=== PATIENT | female | born 1990 | race Caucasian/White ===

== ENCOUNTER 2022-05-18 14:48 | Outpatient (CLI) | payer OTHER, SELFPAY ==
--- NOTE | 2022-05-18 15:00 | CRLHL7_ITS ---
For Patients: As a result of the Cures Act, medical imaging exams and procedure reports are released immediately into your electronic medical record. You may view this report before your referring provider. If you have questions, please contact your health care provider. INDICATION: First trimester scan, establish dates. COMPARISON: None. TECHNIQUE: Real-time weber-scale imaging of the pelvis was performed. FINDINGS: Sonographic imaging demonstrates a single living intrauterine gestation. The embryo demonstrates a regular cardiac rate measuring 147 beats per minute. The embryo`s crown-rump length measurement of 0.9 cm corresponds to a gestational age of 7 weeks 0 days with a sonographic due date of 01/04/2023. There is a normal-appearing yolk sac. There are no gross abnormalities noted within the embryo at this early state of development. The gestational sac has a normal appearance. There is a 6 x 5 x 4 millimeter perigestational hemorrhage. The amount of fluid within the sac appears appropriate for gestational age. The cervix is closed. The myometrium appears normal. The ovaries are of normal size. Corpus luteal cyst left ovary. There are no suspicious fluid collections noted in the cul-de-sac. IMPRESSION: Single living intrauterine with sonographic gestational age 7 weeks 0 days and sonographic due date 01/04/2023. Small subchorionic hemorrhage measuring 6 x 5 x 4 millimeters. Dictated by Lavon Kay MD @ 05/18/2022 3:47:54 PM (Electronically Signed)
== END 2022-05-18 14:49 | disposition home or self-care (01) ==
LOC: US 14:48
PROVIDERS: Visit Provider Registered Nurse
DX: Z34.91 Encounter for supervision of normal pregnancy, unspecified, first trimester (principal); O20.9 Hemorrhage in early pregnancy, unspecified; Z3A.01 Less than 8 weeks gestation of pregnancy
CPT/HCPCS: 76817; 86592; 86703; 86762; 86787; 86803; 86850; 86900; 86901; 87086; 87340; 87491; 87591

== ENCOUNTER 2022-05-18 16:12 | Outpatient (CLI) | payer OTHER, SELFPAY ==
[2022-05-18 21:03] LABS: HIV 1/2/P24 Combo Screen* Negative (Negative)
[2022-05-18 21:08] LABS: Hepatitis B Surface Antigen* Negative (Negative)
[2022-05-18 21:25] LABS: Hepatitis C Virus Antibody* Negative (Negative)
[2022-05-18 21:43] LABS: Chlamydia DNA Amplified* NOT DETECTED (No Detected); GC DNA Amplified* NOT DETECTED (No Detected)
[2022-05-20 23:52] LABS: Rapid Plasma Reagin (RPR) Non Reactive (Non Reactive)
[2022-05-21 04:58] LABS: Rubella Antibody IgG 26.5 IU/mL
== END 2022-05-18 16:13 | disposition home or self-care (01) ==
PROVIDERS: Visit Provider Registered Nurse
DX: Z34.90 Encounter for supervision of normal pregnancy, unspecified, unspecified trimester (principal)
CPT/HCPCS: 86592; 86703; 86762; 86787; 86803; 86850; 86900; 86901; 87086; 87340; 87491; 87591

== ENCOUNTER 2022-10-15 15:01 | Outpatient (CLI) | payer OTHER, SELFPAY ==
--- NOTE | 2022-10-15 15:00 | CRLHL7_ITS ---
For Patients: As a result of the Century Cures Act, medical imaging exams and procedure reports are released immediately into your electronic medical record. You may view this report before your referring provider. If you have questions, please contact your health care provider. INDICATION: Gestational hypertension TECHNIQUE: Real time weber scale imaging of the fetus was performed. COMPARISON: 08/17/2022 FINDINGS: Sonographic imaging demonstrates a single living intrauterine gestation. Fetus demonstrates a regular cardiac rate of 144 beats per minute. Fetus has a vertex position. The placenta lies left posterior without evidence of placenta previa. Amniotic fluid volume appears normal and there is a single deepest pocket of 4.1 cm. The estimated weight is 1456gm which lies at the 86th %. On the prior OB ultrasound dated 08/17/2022 the estimated weight was at the 56th percentile. BPD 64th percentile. HC 60th percentile. AC 94th percentile. FL 42nd percentile. The fetus was active and demonstrated normal breathing movements. There was normal flexion and extension of the trunk and extremities. IMPRESSION: Normal biophysical profile score 8/8. Sonographic gestational age 29 weeks 4 days and sonographic due date 12/27/2022. Sonographic age 8 days ahead of the clinical age. Estimated weight 86th percentile. Abdominal circumference 94th percentile. Dictated by Lavon Kay MD @ 10/15/2022 3:47:20 PM (Electronically Signed)
== END 2022-10-15 15:02 | disposition home or self-care (01) ==
LOC: US 15:01
PROVIDERS: Visit Provider Obstetrics & Gynecology
DX: O13.3 Gestational [pregnancy-induced] hypertension without significant proteinuria, third trimester (principal); Z3A.28 28 weeks gestation of pregnancy
CPT/HCPCS: 76816; 76819; 82565; 82570; 84156; 84450; 84460; 84520; 84550; 86592

== ENCOUNTER 2022-10-19 09:47 | Outpatient (CLI) | payer OTHER, SELFPAY | END 2022-10-19 09:48 | disposition home or self-care (01) | LOC: NFLDREF 10-20 10:26 | PROVIDERS: PCP Obstetrics & Gynecology; Referring Provider Obstetrics & Gynecology; Visit Provider Obstetrics & Gynecology | DX: O13.3 Gestational [pregnancy-induced] hypertension without significant proteinuria, third trimester (principal); O16.3 Unspecified maternal hypertension, third trimester | CPT/HCPCS: 82565; 82570; 84156; 84450; 84460; 84520 ==

== ENCOUNTER 2022-10-25 15:14 | Outpatient (CLI) | payer OTHER, SELFPAY | END 2022-10-25 15:15 | disposition home or self-care (01) | LOC: NFLDREF 10-26 09:05 | PROVIDERS: Visit Provider Obstetrics & Gynecology | DX: O16.3 Unspecified maternal hypertension, third trimester (principal); Z3A.30 30 weeks gestation of pregnancy | CPT/HCPCS: 82570; 84156 ==

== ENCOUNTER 2022-12-08 15:08 | Outpatient (CLI) | payer OTHER, SELFPAY ==
[2022-12-09 19:37] LABS: Strep B DNA Probe NEGATIVE (Negative)
[2022-12-09 20:23] LABS: Strep B Pen/Amox Allergy No
== END 2022-12-08 15:09 | disposition home or self-care (01) ==
PROVIDERS: Visit Provider Obstetrics & Gynecology
DX: O16.3 Unspecified maternal hypertension, third trimester (principal); Z3A.36 36 weeks gestation of pregnancy
CPT/HCPCS: 87081; 87653

== ENCOUNTER 2022-12-31 11:06 | Outpatient (CLI) | payer OTHER, SELFPAY | END 2022-12-31 11:07 | disposition home or self-care (01) | PROVIDERS: Visit Provider Obstetrics & Gynecology | DX: O16.3 Unspecified maternal hypertension, third trimester (principal); Z3A.39 39 weeks gestation of pregnancy | CPT/HCPCS: 82565; 82570; 84156; 84450; 84460; 84520 ==

== ENCOUNTER 2022-12-31 12:40 | Inpatient (IN) | payer OTHER, SELFPAY ==
[2022-12-31] VITALS (20 sets, daily range): BP systolic 107–157; BP diastolic 56–87; PULSE 75–106; RESP 16–18; TEMP 36.7–36.8; O2SAT 98–99; BMI 29.0
[2022-12-31 13:32] LABS: Total Protein Urine 15 mg/dL
[2022-12-31 13:33] LABS: Creatinine Urine 19.1 mg/dL
--- NOTE | 2022-12-31 13:40 | P.OBHP_ITS ---
OB - H&P: HPI Labor/Induction History of Present Illness Time Seen by Provider: 13:40 Date Seen: 12/31/22 Chief Complaint: Pre-eclampsia Chief complaint: Maternity : 2 Para: 1 Indications for induction: pre-eclampsia Narrative: Qi Shin is a 32 year old female 2 para 1001 at 39w3 gestation by first trimester US, who presents with pre-eclampsia after persistent elevated BPs in clinic today. She has had transient elevated BPs throughout care but none sustained, a persistent elevation in urine protein:creatinine ratio, but otherwise normal labs and imaging, and always asymptomatic including today. No movement, no bleeding or LOF. No other recent illness or changes in health, no other significant problems with this . Specific Issues/Plans G 2 P 1001. RYAN 01/04/23 by 1st trimester US. : Rory. Daughter: Summer. Baby: Girl! 1. H/o vacuum-assisted vaginal delivery w/ LML episiotomy: repetitive late decelerations. 2. Pap w/ HPV Co-testing at her 6wk pp visit. 3. Hypertensive disorder of - Hx of newly elevated BP at 28 weeks. * HELLP labs with AST 38, P/C 0.5, otherwise normal on 10/15/22 * US 10/15/22: EFW 86%, AC 94%, BPP 8/8, SDP 4.1. * Visit for 10/18 with NST, repeat BP. If still elevated will need twice weekly testing scheduled. RN visit scheduled for next visit. * Elevated BP on 12/31 visit > working dx of gHTN, labs pending. Planning transfer to Center for [facility]. Flu: Not vaccinated. Recommended COVID: Not vaccinated. Recommended History of Present Dating criteria: based on 1st trimester US only care: good care Ultrasounds: normal 1st trimester US and normal mid trimester US complications: preeclampsia Medical complications: none Labs Blood type: A (+) positive Rubella: immune RPR/VDLR: nonreactive GBS status: negative HBsAG: negative Review of Systems Status of ROS: Reports: 10 or more systems reviewed and unremarkable except as noted in History and below Meds Home Medications and Allergies Home Medications Medication Instructions Recorded Confirmed Type prenat.vits,deepti,win-feau-teopt 1 tab PO QDAY 05/18/22 12/31/22 History Allergies Allergy/AdvReac Type Severity Reaction Status Date / Time No Known Allergies Allergy Unknown Verified 12/31/22 10:48 OB - H&P: Exam Physical Exam: Vital signs: Pulse BP Pulse Ox 92 135/84 99 12/31/22 13:33 12/31/22 13:33 12/31/22 12:44 Constitutional: Constitutional: no acute distress Routine HEENT Exam: ENT: Present mucous membranes moist Routine Respiratory Exam: Comments: No increased work of breathing, easily conversant Routine Cardiovascular Exam: Cardiovascular: RRR Routine Abdominal Exam: Abdominal: Present soft; Absent distended, guarding or tenderness Comments: Uterus gravid Detailed Labor and Delivery Exam: Patient Gravid: Yes Contraction frequency (min): 0 Tachysystole: No Fetus (Single): Amniotic Membrane Status: intact Heart Rate Baseline: 130 Monitor Accelerations: Present Monitor Decelerations: None Manager Operations Variability: Moderate (6-25) Routine Extremities Exam: Extremities: Present normal inspection; Absent pedal edema or tenderness Routine Neurological Exam: Present alert and oriented X3 Detailed Neurological Exam: DTR: 2+: biceps (L), biceps (R), patellar (L) and patellar (R) Routine Psychiatric Exam: Present normal affect, normal thought process, good insight and good judgment OB - Results Labs Labs: HELLP Labs normal Urine protein:creatinine 0.7 OB - Problem Based A/P Additional Plan (1) Pre-eclampsia: Problem details: No severe features, asymptomatic at this time Status: Acute Plan: Continue to monitor for severe features, treat BPs and start magnesium IV as needed, reviewed with patient. Move towards delivery with induction starting on misoprostol cervical ripening until favorable then oxytocin augmentation as needed. (2) : Status: Acute Plan 32yo @ 39w3 with pre-eclampsia, see above Delivery/Labor/Induction Plan Plan: induction Induction method: per misoprostol protocol
[2022-12-31] MEDS: miSOPROStoL 25 MCG/0.25 TABLET PO ×3 (15:23→21:43)
[2022-12-31] MEDS: LACTATED RINGERS 1000 ML 1,000 ML 125 ML IV (23:10)
[2023-01-01] VITALS (83 sets, daily range): BP systolic 78–148; BP diastolic 43–96; PULSE 10–130; RESP 16–18; TEMP 36.5–37; O2SAT 93–100
[2023-01-01] MEDS: OXYTOCIN 30 unit/500 ML in NS 30 UNIT/500 ML BAG IVPB (01:55)
[2023-01-01] MEDS: LACTATED RINGERS 1000 ML 1,000 ML 125 ML IV ×2 (07:20→09:10)
[2023-01-01] MEDS: LIDOCAINE 2% (PF) 5 ML VIAL EPIDURAL (08:26)
[2023-01-01] MEDS: ROPIVACAINE 0.2% 100 ml 100 ML 12 MG EPIDURAL (08:36)
--- NOTE | 2023-01-01 08:42 | P.ANBPRC_ITS ---
[facility] Medical History Vacuum-assisted vaginal delivery (07/18/20) ?Z37.9 - Outcome of delivery, unspecified (ICD-10) Family History Mother Breast cancer Maternal Grandmother Breast cancer Social History Narrative: Cis-gender, heterosexual woman Relationship status: . 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 Tobacco: Lifetime nonsmoker E-cigarettes: No Alcohol: None during . Prior to 0-1 servings/day. Illicit/recreational drugs: No Safety concerns at home or work: No Dietary restriction(s): No Exercise: Not reported What is your current living situation?: I presently have a place to live Problems where you live: no known problems In the past 12 months, utilities in danger of being shut off: no In past 12 months, lack of transportation kept you from medical appts, meetings, work, or getting things needed for daily living: no In the past 12 mos, have been you worried that your food would run out before you had money to buy more?: never true In the past 12 mos, the food you bought just didn't last and you didn't have money to buy more?: never true Smoking Status: Never smoker How often does anyone, including family, friends and others, physically hurt you : never How often does anyone, including family, friends and others, insult or talk down to you: never How often does anyone, including family, friends and others, threaten you with harm: never How often does anyone, including family, friends and others, scream or curse at you: never Little interest or pleasure in doing things: not at all Feeling down, depressed, or hopeless: not at all Meds Home Medications and Allergies Home Medications Medication Instructions Recorded Confirmed Type prenat.vits,deepti,qpm-iftq-orcyl 1 tab PO QDAY 05/18/22 12/31/22 History Allergies Allergy/AdvReac Type Severity Reaction Status Date / Time No Known Allergies Allergy Unknown Verified 01/01/23 07:26 Results Labs Labs: Laboratory Results - last 24 hr 12/31/22 12/31/22 12:56 13:49 Urine Creatinine 19.1 Protein/Creatinin Ratio 0.70 H Urine Total Protein 15 Blood Type A Positive Antibody Screen NEGATIVE Vital Signs Vital Signs: Last Vital Signs Temp 97.7 F 01/01/23 07:16 Pulse 102 H 01/01/23 08:40 Resp 18 01/01/23 07:16 BP 142/74 H 01/01/23 08:40 Pulse Ox 99 01/01/23 08:41 Weight: 79.832 kg Height: 165.1 cm Anesthesia Procedures Epidural Insertion Patient Location: OB Start Time: 08:15 Stop Time: 09:00 Start Date: 01/01/23 Stop Date: 01/01/23 Reason for Block: primary anesthetic Patient Position: sitting Performed By: Fernando Rolon Preanesthetic Checklist: IV checked, risks and benefits discussed, surgical consent, monitors and equipment checked, pre-op evaluation, timeout performed and anesthesia consent Prep: chlorhexidine gluconate Monitoring: blood pressure monitoring, quality assurance monitor final, continuous pulse oximetry and heart rate Approach: midline Vertebral Space: lumbar (1-5) Needle Type: Tuohy needle Injection Technique: continuous catheter (catheter) Needle gauge: 17 Needle Length (cm): 10 cm Needle Insertion Depth (cm): 4 Catheter Gauge: 19 Catheter Type: multi-orifice Catheter at skin depth (cm): 9 Test Dose Result: negative and lidocaine 1.5% with epinephrine 1 to 200,000
[2023-01-01] MEDS: PHENYLEPHRINE 100 MCG/ML SYRINGE IVP ×3 (08:55→10:04)
[2023-01-01] MEDS: ePHEDrine sulfate 5 MG/ML inj 10 MG IVP ×2 (08:59→09:23)
--- NOTE | 2023-01-01 09:47 | PM.OBPNL ---
Subjective Time Seen by Provider: 08:40 Date Seen: 01/01/23 Narrative: Patient feeling tired with little sleep overnight, contractions stronger and epidural placed with good relief. NO headache, changes in vision, upper abdominal pain Objective Vital Signs: Last Vital Signs Temp 97.7 F 01/01/23 07:16 Pulse 105 H 01/01/23 09:42 Resp 18 01/01/23 07:16 BP 109/64 01/01/23 09:42 Pulse Ox 99 01/01/23 09:46 Pelvic Exam Dilation (cm): 5 Effacement (%): 80 Station: -2 Contractions Monitor mode: External Contraction Frequency: 3-4 Contraction pattern: Regular Contraction intensity: Strong/Firm Pitocin Rate (mU/min): 4 Assessment Assessment: active labor Station: -2 Amniotic Membrane Status: AROM Status: Category l Heart Rate Baseline: 130 Penitentiary Variability: Moderate (6-25) Monitor Accelerations: Present Monitor Decelerations: None Labor Progress: AROM performed for clear fluid Plan Plan: Continue oxytocin augmentation
--- NOTE | 2023-01-01 11:46 | W.PM.OBVAGDE ---
OB Procedure Vag Delivery Mother Details Mother Details: The patient is a 32 year-old, 2, Para 1, admitted on 12/31/22 at 39w3d gestation for induction of labor secondary to preeclampsia. : 2 Para: 1 Weeks Gestation: 39 Admission Date: 12/31/22 Additional Details Amniotic Membrane Status: AROM Amniotic Membrane Rupture Date: 01/01/23 Amniotic Membrane Rupture Time: 08:45 Amniotic Membrane Fluid Description: Clear Analgesia/Anesthesia Type: Epidural Waterbirth: No Pitcoin: Yes Intrapartal Events: Labor Augmentation and Labor Induction Induction Method: per misoprostol protocol Delivery augmentation: rupture of membranes and pitocin Complete: 11:01 Pushin:02 Heart: heart tones during second stage were Cat 1 Delivery Details Delivery Date: 01/01/23 Delivery Time: 11:18 Route of delivery: Infant Gender: Female Infant Viability: Alive; Heart Rate Present Position at Delivery: OA Delivery Details: Delivered via spontaneous vaginal delivery. was placed on maternal abdomen.? Cord was clamped and cut after a 30-60 second delay. Nose and mouth were bulb suctioned.? Infant weight pending. 1 Minute Interval Total Score: 8 5 Minute Interval Total Score: 9 Additional Details Shoulder Dystocia: No Placenta Delivery Time: 11:24 Delivery repair: Vicryl Procedure Done: Global Blood Loss: 250 Laceration: Perineal - 2nd Degree Episiotomy Description: None Blood Loss Measurement Type: QBL Bakri Used: No Sponge/Need Count Correct: Yes Cord Vessel Description: 3 Vessels Event Summary Status: Mother and infant were stable after delivery. Disposition: floor
[2023-01-01] MEDS: IBUPROFEN 600 MG TABLET PO (16:18)
[2023-01-01] MEDS: ACETAMINOPHEN 500 MG TABLET 1000 MG PO (23:53)
[2023-01-02] VITALS: BP 115/75; PULSE 92; RESP 16; TEMP 36.6; O2SAT 96
[2023-01-02 04:01] VITALS: BP 111/76; PULSE 78; RESP 14; TEMP 36.6; O2SAT 97
[2023-01-02 08:30] VITALS: BP 130/80; PULSE 81; RESP 18; TEMP 36.6; O2SAT 99
[2023-01-02] MEDS: DOCUSATE SODIUM 100 MG CAPSULE PO (08:57)
--- NOTE | 2023-01-02 10:19 | PM.OBDSVD1 ---
DS: Providers Provider Time Seen by Provider: : Date Seen: 01/02/23 Date of admission: 12/31/22 12:40 Primary care physician: Not a Local Provider Admitting Clinician: Alvaro House MD Consults: Process Artist Physician on discharge: Alvaro House MD Date of Discharge: 01/02/23 DS: Diagnosis Discharge Diagnosis (1) Pre-eclampsia: Status: Acute Problem details: No severe features, asymptomatic at this time (2) : Status: Acute (3) (normal spontaneous vaginal delivery): Status: Acute Exam Const: Vital Signs, click to edit/add: Vital Signs - 24 hr 01/01/23 10:28 01/01/23 10:33 01/01/23 10:33 Temperature 98.3 F Pulse Rate 102 H Pulse Rate [Blood Pressure Cuff] Respiratory Rate Blood Pressure 134/71 Blood Pressure [Le ft Arm] Pulse Oximetry 98 98 Oxygen Delivery Me thod 01/01/23 10:38 01/01/23 10:43 01/01/23 10:48 Temperature Pulse Rate 108 H Pulse Rate [Blood Pressure Cuff] Respiratory Rate Blood Pressure 136/77 Blood Pressure [Le ft Arm] Pulse Oximetry 98 98 98 Oxygen Delivery Me thod 01/01/23 11:03 01/01/23 11:30 01/01/23 11:33 Temperature 98.5 F Pulse Rate 104 H 101 H Pulse Rate [Blood Pressure Cuff] 101 H Respiratory Rate 18 Blood Pressure 139/79 131/71 Blood Pressure [Le ft Arm] 131/71 Pulse Oximetry Oxygen Delivery Me thod 01/01/23 11:33 01/01/23 11:45 01/01/23 11:48 Temperature 98.5 F Pulse Rate 99 Pulse Rate [Blood Pressure Cuff] 99 Respiratory Rate 18 Blood Pressure 132/73 Blood Pressure [Le ft Arm] 132/73 Pulse Oximetry Oxygen Delivery Me thod 01/01/23 12:00 01/01/23 12:03 01/01/23 12:15 Temperature Pulse Rate 100 Pulse Rate [Blood Pressure Cuff] 10 L 100 Respiratory Rate 16 16 Blood Pressure 118/76 Blood Pressure [Le ft Arm] 118/76 121/76 Pulse Oximetry Oxygen Delivery Me thod 01/01/23 12:18 01/01/23 12:30 01/01/23 12:33 Temperature Pulse Rate 97 98 Pulse Rate [Blood Pressure Cuff] 98 Respiratory Rate 18 Blood Pressure 121/76 125/80 Blood Pressure [Le ft Arm] 125/80 Pulse Oximetry Oxygen Delivery Me thod 01/01/23 12:45 01/01/23 12:48 01/01/23 13:00 Temperature Pulse Rate 96 Pulse Rate [Blood Pressure Cuff] 96 96 Respiratory Rate 18 18 Blood Pressure 131/80 Blood Pressure [Le ft Arm] 131/80 126/75 Pulse Oximetry Oxygen Delivery Me thod 01/01/23 13:03 01/01/23 13:15 01/01/23 13:18 Temperature Pulse Rate 96 88 Pulse Rate [Blood Pressure Cuff] 78 Respiratory Rate 16 Blood Pressure 126/75 120/70 Blood Pressure [Le ft Arm] 120/70 Pulse Oximetry Oxygen Delivery Me thod 01/01/23 16:00 01/01/23 19:59 01/02/23 00:00 Temperature 98.6 F 97.9 F 97.9 F Pulse Rate Pulse Rate [Blood Pressure Cuff] 113 H 109 H 92 Respiratory Rate 18 16 16 Blood Pressure Blood Pressure [Le ft Arm] 136/79 133/78 115/75 Pulse Oximetry 98 98 96 Oxygen Delivery Me thod Room Air Room Air Room Air 01/02/23 04:01 01/02/23 08:30 Temperature 97.9 F 97.8 F Pulse Rate Pulse Rate [Blood Pressure Cuff] 78 81 Respiratory Rate 14 18 Blood Pressure Blood Pressure [Le ft Arm] 111/76 130/80 Pulse Oximetry 97 99 Oxygen Delivery Me thod Room Air Room Air Common normals: no apparent distress and oriented x3 General appearance: cooperative and comfortable Resp: Common normals: normal respiratory effort Effort & inspection: able to speak in complete sentences GI: Common normals: soft to palpation and non-tender Palpation: soft Other: Fundus firm below umbilicus Extremity: Common normals: no pedal edema Neuro: Common normals: oriented x3 OB - DS: Summary Hospital Course Hospital Course: The patient is a 32 year old now G 2 P 2001 who was admitted to the Center on 12/31/22 for induction of labor secondary to preeclampsia at gestational age of 39 weeks 3 days. She received misoprostol for cervical ripening followed by oxytocin augmentation. She received an epidural for labor analgesia. She had an uncomplicated vaginal delivery, see delivery report for details. She delivered a viable female . She is breast feeding. the patient has done well. Blood pressures were all in the normal range and she had no symptoms of preeclampsia. She was stable for discharge on day 1 Peripartum Data delivery method: Vaginal Laceration description: Perineal - 2nd Degree Episiotomy description: None complications: none [place] Gender: Female Discharge Plan: Home Status at Discharge Overall status at discharge: patient is progressing back to baseline Time Spent with Patient Time attestation: Total time spent providing and/or coordinating discharge services: Time spent: Greater than 30 minutes Discharge Plan Discharge Disposition: Home, Self-Care Date of Admission: 12/31/22 12:40 Attending Provider on Discharge: Alvaro House Primary Care Provider: Provider,Not a Local Condition: Stable Anticipated Discharge Date/Time: 01/02/23 15:27 Discharge Medications: New acetaminophen 500 mg Tablet 1,000 mg PO Q6H PRNQty: 30 0RF docusate sodium 100 mg Capsule 100 mg PO DAILY Qty: 30 0RF ibuprofen 600 mg Tablet 600 mg PO Q6H PRNQty: 30 0RF Continued prenat.vits,deepti,nqp-xalh-tyrsk Tablet 1 tab PO QDAY Discharge Orders: Discharge Order (Routine); Ordered 01/02/23 Ordered By: Alvaro House Patient Education: Preeclampsia and Eclampsia After Delivery (GEN), OB Care, OB Over the Counter Medication Information, OB Vaginal/Breast Feeding Additional Instructions: Schedule follow-up appointments in 3-5 days for nurse blood pressure check, and in clinic in 2 and 6 weeks for care Nothing in the vagina for 6 weeks: No sex, no tampons, use only a pad. Call for vaginal bleeding soaking more than 1 pad per hour for more than 2 hours, fevers 100.4F or higher for more than 1 hour, foul-smelling discharge, increasing pain and cramping not controlled by pain medications, persistent nausea vomiting, signs of preeclampsia including unrelenting headache, spots or sparkles in vision, constant upper abdominal pain, signs of heart conditions including while at rest persistent dizziness, shortness of breath, chest pressure, chest pain, palpitations, signs of mood disorders including persistent feelings of sadness, hopelessness, depression, anxiety for more than 2 weeks. Activity Level: Other Discharge Diet: Regular Follow Up Appointments: Provider,Not a Local [Primary Care Provider] - [facility] [Provider Group] Forms: [employer] Info Instructions DS:Data Additional Comments Additional comments: HELLP labs normal on admission
== END 2023-01-02 13:40 | disposition home or self-care (01) | DRG 807 ==
PROVIDERS: Admitting Provider Obstetrics & Gynecology; Visit Provider Obstetrics & Gynecology
DX: O14.04 Mild to moderate pre-eclampsia, complicating childbirth (principal); Z37.0 Single live birth; O70.1 Second degree perineal laceration during delivery; Z3A.39 39 weeks gestation of pregnancy
CPT/HCPCS: 01967; 36415; 59200; 82570; 84156; 86850; 86900; 86901; 88307; A9270; J2371; J2795; J7120